=== PATIENT | male | born 1960 | race Caucasian/White ===

== ENCOUNTER 2019-11-11 08:15 | Outpatient (CLI) | payer BC, SELFPAY ==
--- NOTE | ~2019-11-11 | US_ITS ---
EXAMINATION: US thyroid EXAM DATE: 11/11/2019 09:00 INDICATION: Nontoxic thyroid nodule. TECHNIQUE: Multiple grayscale and Doppler images of the thyroid were obtained (by a technologist who performed the scan) and subsequently reviewed. Individual nodules and recommendations may be reporte d in accordance with TI-RADS system as designated by the 2017 ACR White Paper TI-RADS committee. Comp ceceson is made to prior examination from 07/30/2017. FINDINGS: The right thyroid lobe measures 4.2 x 2.1 x 1.6 cm, the left measuring 3.7 x 1.4 x 1.5 cm. There is no interval change in the 3 small thyroid nodules, largest solid nodule measuring 1.1 x 0.5 x 0.8 cm, and predominantly cystic nodule measuring 1.2 x 0.7 x 1.0 cm cyst. There are 4 small left t hyroid lobe nodules identified measuring up to 1.1 cm, also appears stable. These nodules are likely benign, no biopsy indicated at this time. Consider follow-up ultrasound in 2 years. IMPRESSION: Small thyroid nodules, stable and likely benign. Consider follow-up thyroid ultrasound in 2 years. Reviewed, dictated and finalized at location A.
== END 2019-11-11 08:16 | disposition home or self-care (01) ==
PROVIDERS: PCP Internal Medicine; Visit Provider Internal Medicine
DX: E04.1 Nontoxic single thyroid nodule (principal)
CPT/HCPCS: 76536

== ENCOUNTER 2021-03-31 02:48 | Day surgery (SDC) | payer BC, SELFPAY ==
[2021-03-22 16:10] VITALS: BMI 29.4
--- NOTE | 2021-03-30 14:06 | PM.HPGS ---
History of Present Illness History of Present Illness Consent: Risks, benefits, and alternatives have been discussed and questions answered. Patient agrees to proceed with procedure. Chief complaint: hx of colon polyps Narrative: Emigdio Benson is a 60 year old male referred for colon cancer screening. He does have a history of polyps Review of Systems Review of Systems: All systems reviewed & are unremarkable except as noted in HPI and below PMFSH Past Medical History Medical History Obesity Thoracic aortic aneurysm (TAA) repaired Surgical History Surgical History S/P AVR (aortic valve replacement) and aortoplasty Family History Family History Father Family history of Alzheimer's disease, Onset Age: 80 Patient's father is Social History Social History Smoking status: Never smoker Second hand tobacco smoke exposure: No Alcohol intake: current Substance use: never Substance use type: does not use Living arrangements: with family Spiritual care concerns: No Meds Home Medications and Allergies Home Medications Medication Instructions Recorded Confirmed Type aspirin 81 mg tablet,delayed 81 mg PO DAILY 03/24/19 03/31/21 History release fexofenadine 180 mg tablet 180 mg PO DAILY 03/24/19 03/31/21 History fluticasone propionate 50 1 spray NASAL DAILY 03/24/19 03/31/21 History mcg/actuation nasal spray,suspension metoprolol succinate 25 mg 25 mg PO DAILY 03/24/19 03/31/21 History tablet,extended release 24 hr warfarin 2.5 mg tablet 2.5 mg PO 2XW tablet 03/24/19 03/31/21 History simvastatin 20 mg tablet 20 mg PO DAILY #90 tablet 01/03/21 03/31/21 Rx azelastine 1 spray NASAL DAILY 03/22/21 03/31/21 History warfarin 5 mg PO 5XW 03/22/21 03/31/21 History Allergies Allergy/AdvReac Type Severity Reaction Status Date / Time telithromycin Allergy Mild unknown - Verified 03/31/21 09:12 can't remember Exam Resp: Auscultation: clear to auscultation bilaterally Cardio: Rate: regular rate Rhythm: regular rhythm GI: GI Palp: Yes Soft to palpation and No Tenderness to palpation present (GI) Assessment and Plan Assessment and plan (1) Colon cancer screening: Code(s): Z12.11 - Encounter for screening for malignant neoplasm of colon Status: Acute Assessment and Plan: Colonoscopy with possible biopsy or polypectomy or cautery or injection of substances.
[2021-03-31 09:13] VITALS: BP 113/75; PULSE 64; RESP 17; TEMP 36.2; O2SAT 100; BMI 29.5
[2021-03-31] MEDS: LACTATED RINGERS 1,000 ML 150 ML IV CONT (09:17)
--- NOTE | 2021-03-31 09:21 | P.PNAN_ITS ---
Anes - Initial Pre Proc Eval Procedure: Operation Date: 03/31/21 10:00 Proposed Procedures p Screening Colonoscopy - Rubens Spicer MD Date/Time: 03/31/21 09:21 Surgeon: Rubens Spicer MD Pre Op Diagnosis: hx of colon polyps Patient Data Age: 60 Gender: M Height: 1.78 m Weight: 93.2 kg Last Vital Signs Temp 36.2 C L 03/31/21 09:13 Pulse 64 03/31/21 09:13 Resp 17 03/31/21 09:13 BP 113/75 03/31/21 09:13 Pulse Ox 100 03/31/21 09:13 Allergies Allergy/AdvReac Type Severity Reaction Status Date / Time telithromycin Allergy Mild unknown - Verified 03/31/21 09:12 can't remember Home Medications Medication Instructions Recorded Confirmed Type aspirin 81 mg tablet,delayed 81 mg PO DAILY 03/24/19 03/31/21 History release fexofenadine 180 mg tablet 180 mg PO DAILY 03/24/19 03/31/21 History fluticasone propionate 50 1 spray NASAL DAILY 03/24/19 03/31/21 History mcg/actuation nasal spray,suspension metoprolol succinate 25 mg 25 mg PO DAILY 03/24/19 03/31/21 History tablet,extended release 24 hr warfarin 2.5 mg tablet 2.5 mg PO 2XW tablet 03/24/19 03/31/21 History simvastatin 20 mg tablet 20 mg PO DAILY #90 tablet 01/03/21 03/31/21 Rx azelastine 1 spray NASAL DAILY 03/22/21 03/31/21 History warfarin 5 mg PO 5XW 03/22/21 03/31/21 History Patient hx anesthesia problems: none Family hx anesthesia problems: none Results Review: All pre-operative results and documents have been reviewed as part of the pre-operative evaluation. [facility] Past Medical History Medical History (Updated 03/31/21 @ 09:22 by Paresh Gonzalez MD) Obesity Thoracic aortic aneurysm (TAA) repaired Surgical History Surgical History (Updated 03/31/21 @ 09:23 by Paresh Gonzalez MD) S/P AVR (aortic valve replacement) and aortoplasty Family History Family History Father Family history of Alzheimer's disease, Onset Age: 80 Patient's father is Social History Social History Smoking status: Never smoker Second hand tobacco smoke exposure: No Alcohol intake: current Substance use: never Substance use type: does not use Living arrangements: with family Spiritual care concerns: No Anes - Eval Final PreProcedure Day of Procedure 03/31/21 09:21 Patient weight: obese Heart: regular rate and rhythm Lungs: clear to auscultation Airway: Mallampati scale class II Neurological: alert and oriented Last oral intake: >/= 8 hours ASA classification: III Emergent: no Anesthetic plan: proceed Anesthesia type and monitoring: general GIVS and standard monitoring Results Review: All pre-operative results and documents have been reviewed as part of the pre-operative evaluation. Informed Consent: The patient's anesthetic plan and its attendant risks and benefits were discussed with the patient/family/POA. Questions were solicited and answers provided to the satisfaction of the patient/family/POA.
[2021-03-31] MEDS: GENTAMICIN 80MG/SOD CHL 50 ML 80 MG/50 ML BAG 100 MG IVPB (09:23)
[2021-03-31] MEDS: AMPICILLIN 2 GM/NS 100 ML 2 GM/100 ML BAG IVPB (09:52)
[2021-03-31 10:27] VITALS: BP 95/48; PULSE 56; RESP 19; O2SAT 97
[2021-03-31 10:37] VITALS: BP 108/58; PULSE 51; RESP 17; O2SAT 100
[2021-03-31 10:47] VITALS: BP 135/80; PULSE 54; RESP 20; O2SAT 100
== END 2021-03-31 11:00 | disposition home or self-care (01) ==
PROVIDERS: PCP Internal Medicine; Visit Provider Internal Medicine Gastroenterology
PROC: 0DJD8ZZ Inspection of Lower Intestinal Tract, Via Natural or Artificial Opening Endoscopic (ICD-10-PCS; CPT 45378; principal; 2021-03-31 10:00)
DX: Z12.11 Encounter for screening for malignant neoplasm of colon (principal); Z86.010 Personal history of colon polyps; Z79.82 Long term (current) use of aspirin; Z79.01 Long term (current) use of anticoagulants; Z95.2 Presence of prosthetic heart valve
CPT/HCPCS: 45378; J0290; J1580; J2704; J7120

== ENCOUNTER 2021-10-30 09:25 | Outpatient (CLI) | payer BC, SELFPAY ==
--- NOTE | ~2021-10-30 | US_ITS ---
EXAMINATION: US thyroid DATE: 10/30/2021 09:59 INDICATION: Nontoxic single thyroid nodule TECHNIQUE: Multiple ultrasound images of the thyroid were obtained. COMPARISON: 11/11/2019 FINDINGS: The right thyroid lobe measures 3.2 x 2.0 x 2.7 cm. The left thyroid lobe measures 3.3 x 1.1 x 0.8 c m. 1.1 cm wider than tall solid very hypoechoic nodule with smooth margins with echogenic foci (TI-R ADS 5, highly suspicious , FNA if >=1.0 cm, annual followup is >0.5 cm) in the right thyroid. No inte rval change in a 8 mm TI-RADS 1 cystic nodules with peripheral 1-2 mm echogenic focus with suggestion posterior comet tailing suggesting a colloid cyst with inspissated colloid. 1.3 cm wider than tall s olid isoechoic nodule with smooth margins and without echogenic foci (TI-RADS 3, mildly suspicious , FNA if >=2.5 cm, annual followup is >1.5 cm) in the left thyroid lobe. Partially visualized are of fe w additional subcentimeter solid hypoechoic nodules in the left thyroid lobe. IMPRESSION: 1. Multinodular goiter. Would recommend ultrasound-guided biopsy of the 1.1 cm TI RADS 5 right thyroi d nodule. Reviewed, dictated and finalized at location B. IMPRESSION: 1. Multinodular goiter. Would recommend ultrasound-guided biopsy of the 1.1 cm TI RADS 5 right thyroid nodule.
== END 2021-10-30 09:26 | disposition home or self-care (01) ==
PROVIDERS: PCP Internal Medicine; Visit Provider Internal Medicine
DX: E04.2 Nontoxic multinodular goiter (principal)
CPT/HCPCS: 76536

== ENCOUNTER 2022-02-06 12:36 | Outpatient (CLI) | payer BC, SELFPAY ==
--- NOTE | ~2022-02-06 | US_ITS ---
EXAMINATION: US FNA w image guidance, US FNA additional DATE: 02/06/2022 14:04 INDICATION: Bilateral thyroid nodules TECHNIQUE: A time-out was performed to verify the patient's name, date of , and procedure to be performed . The procedure and its benefits and risks were discussed with the patient. Risks specifically discus sed included bleeding and infection. The patient understood the risks and agreed to proceed. The neck was prepped and draped in the usual sterile manner. Attention was first directed to the right thyroi d nodule. 3 mL 1% lidocaine was used for local anesthesia. 6 passes were made with a 25G needle into the right thyroid nodule. Appropriate needle location was documented with continuous sonographic gu idance. Attention was then directed to the left thyroid nodule. An additional 3 mm 1% lidocaine was u sed for local anesthesia. 6 additional passes were made into the left thyroid nodule with a 20 5G nee dle utilizing continuous sonographic guidance. Sterile bandages were applied. There were no immediat e complications. FINDINGS: Grayscale ultrasound images demonstrate biopsy needles advanced into a 1.1 cm TI RADS 5 right thyroid nodule and subsequently into the 1.2 cm solid isoechoic left thyroid nodule which on real-time imagi ng also appear to demonstrate punctate echogenic foci consistent with a TI RADS 4 nodule. IMPRESSION: 1. Successful ultrasound-guided fine needle aspiration of the 1.1 cm TI RADS 5 right thyroid nodule of concern. Line 2. Successful ultrasound-guided fine-needle aspiration of a 1.2 cm left thyroid nodule with echogenic foci seen on real-time imaging increasing the previous TI RADS 3 grade to TI-RADS 4. Reviewed, dictated and finalized at location A. IMPRESSION: 1. Successful ultrasound-guided fine needle aspiration of the 1.1 cm TI RADS 5 right thyroid nodule of concern. Line 2. Successful ultrasound-guided fine-needle aspiration of a 1.2 cm left thyroid nodule with echogenic foci seen on real-time imaging increasing the previous T I RADS 3 grade to TI-RADS 4.
== END 2022-02-06 12:37 | disposition home or self-care (01) ==
PROVIDERS: PCP Internal Medicine; Visit Provider Otolaryngology
DX: E04.1 Nontoxic single thyroid nodule (principal)
CPT/HCPCS: 10005; 10006; 88173; 88305

== ENCOUNTER 2022-07-25 10:56 | Outpatient (CLI) | payer BC, SELFPAY ==
[2022-07-25 12:09] LABS: Influenza A QL RT-PCR Negative (Negative); Influenza B QL RT-PCR Negative (Negative); SARS-CoV-2 RNA PCR Positive
== END 2022-07-25 10:57 | disposition home or self-care (01) ==
LOC: ANHLAB 10:57
PROVIDERS: PCP Internal Medicine; Visit Provider Internal Medicine
DX: U07.1 COVID-19 (principal)
CPT/HCPCS: 87636

== ENCOUNTER 2022-10-17 16:25 | Outpatient (CLI) | payer BC, SELFPAY ==
--- NOTE | ~2022-10-17 | XR_ITS ---
EXAM: XR foot LT min 3V DATE: 10/17/2022 16:52 HISTORY: PAIN IN LEFT FOOT AFTER WALKING ON [place], SWELLING . COMPARISON: None available. FINDINGS: Normal mineralization. No fracture or dislocation. No lytic or blastic lesion. 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 No erosion or periosteal change. Soft tissues within normal wesley its. IMPRESSION: No acute osseous finding in the left foot. Reviewed, dictated and finalized at location K.
== END 2022-10-17 16:26 | disposition home or self-care (01) ==
LOC: ANHIMG 16:29
PROVIDERS: PCP Internal Medicine; Visit Provider Internal Medicine
DX: M79.672 Pain in left foot (principal)
CPT/HCPCS: 73630